=== PATIENT | female | born 1980 | race Caucasian/White ===

== ENCOUNTER 2016-10-31 12:05 | Day surgery (SDC) | payer BC ==
[~2016-10-31 12:05] MED LIST: DIPRIVAN 200 MG/20 ML IV ONE; Depo-Medrol 40 MG/ML IM ONE; Lactated Ringers 1,000 ML IV ONE; Lactated Ringers 1,000 ML IV SCH; Sensorcaine 0.25% 10 ML IJ ONE; Sodium Chloride 0.9(Preservative Free) 10 ML IJ ONE
[2016-10-31] MEDS ORDERED: KEFZOL 1 GM/50 ML PREMIX** 50 ML IV ONE ×2 (13:56→14:02)
[2016-10-31 14:14] VITALS: BP 121/74; PULSE 68; O2SAT 99
--- NOTE | 2016-10-31 16:55 | XRAY ---
9 seconds fluoroscopy time in surgery for caudal MAGDY.
--- NOTE | 2016-10-31 17:02 | XRAY ---
Indication: Caudal MAGDY. Intraoperative fluoroscopy was provided for 9 seconds. A single lateral digital spot image of the lumbosacral junction demonstrates small amount of contrast posterior to the upper sacrum without spinal needle. Correlate with intraoperative findings/report.
== END 2016-10-31 15:46 | disposition home or self-care (01) ==
LOC: SDC-PAIN 12:05
PROVIDERS: ATTEND Pain Medicine Interventional Pain Medicine
DX: M54.16 Radiculopathy, lumbar region (principal); M48.06 Spinal stenosis, lumbar region; M54.5 Low back pain; Z79.891 Long term (current) use of opiate analgesic
CPT/HCPCS: 01992; 62323; 72020; 77003; J0690; J1030; J2704; Q9967